=== PATIENT | female | born 1990 | race Hispanic/Latino ===

== ENCOUNTER 2017-01-07 21:25 | Emergency (ER) | payer OTHER ==
--- NOTE | 2017-01-07 21:53 | ED PDOC ---
Arrival/HPI - General Time Seen by Provider: 01/07/17 21:27 - History of Present Illness Narrative History of Present Illness (Text): 01/07/17 21:51 26 yo female, presnts with mild burning of urine. pt states she took outpt test which showed (+)yeast, no urine infection. pt in er requesting repeat testing. also requesting std, and hiv testing. no genital lesions, no abdominal pain, no n/v/d, no other complaints. Past Medical History - Provider Review Nursing Documentation Reviewed: Yes Family/Social History - Physician Review Nursing Documentation Reviewed: Yes Family/Social History: Unknown Family HX Allergies/Home Meds Allergies/Adverse Reactions: Allergies azithromycin [From Zithromax Z-Blayne] Adverse Reaction (Verified 01/07/17 21:57) RASH procaine [From Novocain] Adverse Reaction (Verified 01/07/17 21:57) SWELLING Review of Systems - Review of Systems Constitutional: Normal Eyes: Normal ENT: Normal Respiratory: Normal Cardiovascular: Normal Gastrointestinal: Normal Genitourinary Female: Dysuria Musculoskeletal: Normal Skin: Normal Neurological: Normal Endocrine: Normal Hemo/Lymphatic: Normal Psychiatric: Normal Physical Exam Vital Signs Temp Pulse Resp BP Pulse Ox 01/07/17 22:00 98.3 F 78 16 103/67 99 Temperature: Afebrile Blood Pressure: Normal Pulse: Regular Respiratory Rate: Normal Appearance: Positive for: Well-Appearing, Non-Toxic, Comfortable Pain Distress: None Mental Status: Positive for: Alert and Oriented X 3 - Systems Exam Head: Present: Atraumatic, Normocephalic Pupils: Present: PERRL Extroacular Muscles: Present: EOMI Conjunctiva: Present: Normal Mouth: Present: Moist Mucous Membranes Neck: Present: Normal Range of Motion Respiratory/Chest: Present: Clear to Auscultation, Good Air Exchange. No: Respiratory Distress, Accessory Muscle Use Cardiovascular: Present: Regular Rate and Rhythm, Normal S1, S2. No: Murmurs Abdomen: Present: Normal Bowel Sounds. No: Tenderness, Distention, Peritoneal Signs, Rebound, Guarding Back: Present: Normal Inspection Upper Extremity: Present: Normal Inspection. No: Cyanosis, Edema Lower Extremity: Present: Normal Inspection. No: Edema Neurological: Present: GCS=15, CN II-XII Intact, Speech Normal Skin: Present: Warm, Dry, Normal Color. No: Rashes Psychiatric: Present: Alert, Oriented x 3, Normal Insight, Normal Concentration Medical Decision Making - Lab Interpretations Lab Results: Lab Results 01/07/17 22:10: HIV-1 Ab Rapid Screen Non reactive 01/07/17 22:10: HIV 1&2 Antibody Screen Negative 01/07/17 22:05: C.trachomatis RNA (TMA) Not detected, N.gonorrhoeae RNA (TMA) Not detected 01/07/17 22:05: Urine Color Light yellow, Urine Appearance Clear, Urine pH 6.0, Ur Specific Marquez 1.025, Urine Protein Negative, Urine Glucose (UA) Negative, Urine Ketones Negative, Urine Blood Negative, Urine Nitrate Negative, Urine Bilirubin Negative, Urine Urobilinogen 0.2, Ur Leukocyte Esterase Negative, Urine HCG, Qual Negative Disposition/Present on Arrival - Present on Arrival Any Indicators Present on Arrival: No - Disposition Have Diagnosis and Disposition been Completed?: Yes Diagnosis: Dysuria Disposition: HOME/ ROUTINE Disposition Time: 11:00 Condition: STABLE Discharge Instructions (ExitCare): Safe Sex (ED), HIV Transmission (ED), Vulvovaginal Candidiasis (ED), Dysuria (ED) Additional Instructions: you will be called with any positive results. return to er with worsening symptoms or concerns. Prescriptions: Fluconazole 150 mg PO ONCE #1 tablet Referrals: [facility] [Outside] - Follow up with primary [facility] [Outside] - Follow [facility] with [facility] [Outside] - Follow up with primary Forms: [facility] (Turkmen)
[2017-01-07 22:28] LABS: URINE BILIRUBIN NEGATIVE (NEGATIVE); URINE BLOOD NEGATIVE (NEGATIVE); URINE GLUCOSE (UA) NEGATIVE (NEGATIVE); URINE LEUKOCYTE ESTERASE NEGATIVE Leu/uL (NEGATIVE); URINE NITRATE NEGATIVE (NEGATIVE); URINE PROTEIN NEGATIVE mg/dL (<30 mg/dL); URINE UROBILINOGEN 0.2 E.U./dL (<1 E.U./dL)
[2017-01-07 22:33] VITALS: BP 103/67; PULSE 78; RESP 16; TEMP 98.3; O2SAT 99
[2017-01-07 22:39] LABS: URINE APPEARANCE CLEAR (CLEAR); URINE COLOR LIGHT YELLOW (YELLOW)
[2017-01-07 22:41] LABS: HCG,QUALITATIVE URINE NEGATIVE (NEGATIVE)
== END 2017-01-07 23:11 | disposition home or self-care (01) ==
LOC: ED 21:25
DX: R30.0 Dysuria (principal)